=== PATIENT | female | born 1990 | race Caucasian/White ===

== ENCOUNTER → 2016-10-12 | Outpatient (CLI) | payer OTHER | LOC: MOB LAB 10:31 | PROVIDERS: ATTEND Obstetrics & Gynecology | DX: Z20.2 Contact with and (suspected) exposure to infections with a predominantly sexual mode of transmission (principal) | CPT/HCPCS: 87491; 87591 ==

== ENCOUNTER 2016-11-28 12:40 | Emergency (ER) | payer OTHER ==
[2016-11-28] MEDS ORDERED: ONDANSETRON 4 MG/2 ML VIAL IVP ONE (13:26)
[2016-11-28] MEDS ORDERED: NORMAL SALINE 10 ML SYRINGE FLUSH IVP PRN (13:26)
[2016-11-28] MEDS ORDERED: Sodium Chloride 0.9% 1,000 ML PRIMARY IV ONE (13:26)
[2016-11-28] MEDS ORDERED: Famotidine Inj 20 MG in Normal Saline Flush 10 ML IVP ONE (13:26)
[2016-11-28] MEDS ORDERED: HYDROmorphone 2 MG/1 ML IVP ONE (13:29)
[2016-11-28 13:51] LABS: BASOPHILS # (AUTO) 0.01 10*3/UL; BASOPHILS % (AUTO) 0.2 % (0-1); EOSINOPHILS % (AUTO) 1.6 % (0-8); HEMATOCRIT 38.7 % (37.0-47.0); HEMOGLOBIN 13.1 g/dL (12.0-16.0); IMM GRAN % (AUTO) 0.2 % (0-5); IMM GRAN# (AUTO) 0.01 10*3/UL; LYMPHOCYTES # (AUTO) 2.59 10*3/uL; MEAN CORPUSCULAR HEMOGLOBIN 29.6 PG (27-31); MEAN CORPUSCULAR HGB CONC 33.9 g/dL (33-37); MEAN PLATELET VOLUME 10.4 FL (7.4-12.2); MONOCYTES # (AUTO) 0.49 10*3/UL (0.3-0.8); MONOCYTES % (AUTO) 7.8 % (5-15); NEUTROPHILS # (AUTO) 3.11 10*3/UL; NEUTROPHILS % (AUTO) 49.2 % (50-80); RDW COEFFICIENT OF VARIATION 12.8 % (11.5-14.5); RED BLOOD COUNT 4.43 10^6/uL (4.20-5.40); WHITE BLOOD COUNT 6.31 10^3/uL (4.8-10.8)
[2016-11-28 13:58] LABS: PLATELET MORPHOLOGY COMMENT NORMAL MORPHOLOGY (NORM)
[2016-11-28 14:02] LABS: AMYLASE 80 U/L (30-110); ASPARTATE AMINO TRANSFERASE 26 IU/L (8-39); BILIRUBIN,TOTAL 0.4 mg/dL (0.3-1.2); BLOOD UREA NITROGEN 12 mg/dL (7-22); BUN/CREATININE RATIO 17.14 (6-20); CALCIUM 9.5 mg/dL (8.7-10.7); CHLORIDE 104 meq/L (98-112); CREATININE 0.7 mg/dL (0.50-1.20); EST GLOMERULAR FILTRATION > 60 (>60 ml/min/1.73m(2)); GLUCOSE 78 mg/dL (78-110); SODIUM 138 meq/L (135-145); TOTAL PROTEIN 7.7 g/dL (6.1-8.0)
[2016-11-28 14:08] LABS: BILIRUBIN,URINE NEGATIVE (NEG); CLARITY,URINE CLEAR (CLEAR); GLUCOSE, URINE (UA) NEGATIVE (NEG); LEUKOCYTE ESTERASE ,URINE SMALL (NEG); NITRATE,URINE NEGATIVE (NEG); OCCULT BLOOD,URINE NEGATIVE (NEG); PH,URINE 6.5 (5.0-8.5); PROTEIN,URINE NEGATIVE (NEG); UROBILINOGEN,URINE 0.2 EU/dL (0.2)
[2016-11-28 14:23] LABS: URINE SAMPLE TYPE CLEAN CATCH URINE
[2016-11-28 14:27] LABS: BACTERIA,URINE MODERATE; SQUAMOUS EPITHELIAL CELL,UR RARE
--- NOTE | 2016-11-28 15:31 | DI ---
HISTORY: Abdominal pain. COMPARISON: None available. TECHNIQUE: Grayscale evaluation of the liver, spleen, gallbladder, kidneys, and pancreas. 111 image s. FINDINGS: The liver demonstrates normal echogenicity, and appears mildly enlarged measuring 18 cm in greatest dimension. No focal solid or cystic mass seen. There is no apparent intra- or extrahepati c biliary duct dilation. The common duct measures at the upper limits of normal at 5 mm in maximal d imension at the level of the elizabeth hepatis. The interrogated aorta, hepatic and portal venous structures are unremarkable. The gallbladder is normal in size and shape. Multiple mobile echogenic gallstones are present in the gallbladder lumen. No pericholecystic fluid or gallbladder wall thickening present. The gallbladde r wall measures 2.0 mm in greatest dimension. Negative sonographic Wiggins's sign. The pancreas is partially obscured by overlying bowel gas and stomach. Pancreas is otherwise unremar kable. The right kidney is normal in size, shape, and echogenicity. It measures 10.6 cm in greatest long ax is dimension. The left kidney is normal in size, shape, and echogenicity. It measures 10.6 cm in gr eatest long axis dimension. No hydronephrosis or nephrolithiasis is identified. IMPRESSION: 1. No evidence of acute abnormality. 2. Cholelithiasis without acute inflammatory changes or evidence of obstruction. 3. Mildly enlarged liver, without discrete mass lesion; a nonspecific finding. NOTE: The interpreting Radiologist was not present at the time of ultrasound interrogation.
[2016-11-28 15:45] VITALS: RESP 16; TEMP 97.6
--- NOTE | 2016-11-29 02:02 | PDOC ---
Abdomen/Flank HPI - General Chief Complaint: Abdomen Pain Stated Complaint: epigastric abdominal pain Date Seen by Provider: 11/28/16 Time Seen by Provider: 13:15 Source: POSITIVE: Patient Exam Limitations: POSITIVE: No limitations Nurse's Notes Reviewed & Considered: Yes - History of Present Illness Initial Comments: The patient is a 26-year-old female. She states that for the past week, approximately, she has been having intermittent pain in the epigastrium and right upper quadrant. Around 5:30 AM this morning she developed an episode of pain which has been more severe and persistent than her previous episodes. She' s had some nausea without vomiting. Her bowel movements have been loose. No melena, hematochezia, hematemesis, dysuria, hematuria, or fevers. Patient has had no abdominal surgery but she states she has had a left ovarian cyst drained. She started control pills approximately one week ago. She is 3 para 3 abortus 1. Body Location Affected: REPORTS: Abdomen Timing: REPORTS: Abrupt Duration: <24 hours (7-8 hours) Severity: Moderate Quality: REPORTS: "Pain" Abdominal Pain Onset Location: REPORTS: RUQ, Epigastric Abdominal Pain Radiation: REPORTS: No radiation Context: REPORTS: None Modifying Factors: improves with: Other (Episodes usually occur after eating) Associated Symptoms: REPORTS: Nausea. DENIES: Denies symptoms, Back pain, Bloody Emesis, Chest pain, Coffee Grounds Emesis, Chills, Diaphoresis, Fever, Fatigue, Headache, Heartburn, Loss of Appetite, Rash, Shortness of breath, Swelling/mass in abdomen, Syncope, Testicular Pain, Vomiting, Weakness, Grossly Bloody Diarrhea, Constipation, Diarrhea, Dysuria, Incontinent Stool, Incontinent Urine, Mucous Diarrhea, Difficulty Walking, Dizziness, Light Headedness, Numbness, Other Similar Symptoms Previously: Yes (intermittent similar episodes for the past week) Recent Care Received: REPORTS: Denies Any Prior Injuries Related to Current Complaint?: No - Patient Home Medications Home Medications: Home Medications Levonorgestrel-Ethin Estradiol [Levora-28 Tablet] 1 tab PO DAILY #28 tab Ibuprofen 800 mg PO Q8H PRN #40 tab 10/12/16 HYDROcodone/APAP 10/325 Tab [Shannon 10/325 Tab] 1 tab PO Q6H PRN #20 tab Sulfameth/Trimeth 800/160 Tab [Bactrim DS 800/160 Tab] 1 tab PO Q12H #20 tablet 11/28/16 - Patient Allergies Allergies/Adverse Reactions: Allergies Allergy/AdvReac Type Severity Reaction Status Date / Time bisacodyl Allergy HIVES Unverified 10/12/16 10:19 [From Dulcolax (bisacodyl)] docusate sodium [From Colace] Allergy HIVES Unverified 10/12/16 10:19 Past Medical History - heen HEENT History: Denies History Cardiovascular History: Denies History Respiratory History: Denies History Gastrointestinal History: GERD Genitourinary History: Recurrent UTI Endocrine History: Denies History Musculoskeletal History: Denies History Prosthesis or Implant: No Neurological History: Denies History Blood Disorders: Denies History Psychiatric History: Substance Abuse 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 History of Sexually Transmitted Diseases: No Female Reproductive History: Ovarian Cyst LMP: 11/20/16 : 3 Para: 2 Cancer History: Denies History In Past Year Been Physically Harmed or Verbally Threatened: No History of MDRO: No History of Other Communicable Diseases: No Tobacco Use: Current Every Day Smoker Alcohol Use: Rarely Substance Use Type: None Previous Surgical History: No Significant Family History: Asthma, Heart disease, Cancer, Diabetes, Hypertension, Seizures Past Medical History Reviewed: Reviewed - No Changes ROS - Limitations ROS Limitations: No Limitations Constitution: REPORTS: Denies Symptoms Cardiovascular: REPORTS: Denies Cardiac Symptoms Respiratory: REPORTS: Denies Resp Symptoms Neurological: REPORTS: Denies Neuro Symptoms Gastrointestinal: REPORTS: Abdominal Pain, Nausea Endocrine: REPORTS: Denies Symptoms Musculoskeletal: REPORTS: Denies MS Symptoms Genitourinary: REPORTS: Denies Symptoms Eyes: REPORTS: Denies Symptoms ENT: REPORTS: Denies Symptoms Skin: REPORTS: Denies Skin Symptoms Lympathic: REPORTS: Denies Lympathic Symptoms Immunologic: POSITIVE: Denies Symptoms Psychiatric: POSITIVE: Denies Psych Symptoms Abdominal/Flank Pain PE - General Appearance General Appearance: POSITIVE: Alert, Cooperative, No Acute Distress, No Evidence of Trauma - HEENT HEENT: POSITIVE: Head Inspection Nml, Eyes Inspection Nml, Ears Inspection Nml, Nose Inspection Nml, Oral/Dental Inspect. Nml, Pharynx Inspect. Nml, PERRL, EOMI - Neck Neck: POSITIVE: Normal Inspection, No Apparent Injury - Respiratory Respiratory: POSITIVE: No Respiratory Distress, Breath Sounds Normal, Chest Non- Tender - Cardiovascular Cardiovascular: POSITIVE: Regular Rate and Rhythm, Heart Sounds Normal, Equal Pulses, Strong Pulses Peripheral Pulses: Radial (R): 2+, Radial (L): 2+ - Chest Chest: POSITIVE: Non Tender - Abdomen Abdomen: Soft: (All Quadrants), Normal Bowel Sounds: (All Quadrants), Denies Tenderness: (LLQ), (LUQ), (RLQ), No Splenomegaly: (All Quadrants), No Hepatomegaly: (All Quadrants), No Guarding: (All Quadrants), No Rebound: (All Quadrants), No Palpable Pulse: (All Quadrants), No Palpabale Mass: (All Quadrants), No Distention: (All Quadrants), No Rigidity: (All Quadrants), Tenderness Noted: (RUQ) Additional Abdominal Details: Abdominal examination shows bowel sounds to be active. She does have tenderness on palpation over the epigastrium and right upper quadrant. No masses or organomegaly or rebound. - Back Back: POSITIVE: Normal Inspection. 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 As Tested, Motor Normal, Sensation Normal, 5, 6 - Psychological Psychiatric: POSITIVE: Affect Appropriate, Mood Appropriate Images - Complete Complete: 1 - Area of pain on palpation Abdomen Progress - Results Reviewed by me Xrays/CTs/US Reviewed by me: Yes Discussed with Radiologist: Yes Radiology Findings: Abdominal ultrasound shows cholelithiasis with no evidence of cholecystitis Lab Results Reviewed: Yes (8-10 white blood cells in urine; culture pending) Lab Results:: Laboratory Results 11/28/16 11/28/16 Range/Units 13:43 14:00 WBC 6.31 (4.8-10.8) 10^3/uL RBC 4.43 (4.20-5.40) 10^6/uL Hgb 13.1 (12.0-16.0) g/dL Hct 38.7 (37.0-47.0) % MCV 87.4 (81-99) FL MCH 29.6 (27-31) PG MCHC 33.9 (33-37) g/dL RDW Std Deviation 39.9 (39-50) fL RDW Coeff of Aquiles 12.8 (11.5-14.5) % Plt Count 267 (140-350) 10*3/uL MPV 10.4 (7.4-12.2) FL Immature Gran % (Auto) 0.2 (0-5) % Neut % (Auto) 49.2 L (50-80) % Lymph % (Auto) 41.0 (10-50) % [place] % (Auto) 7.8 (5-15) % Eos % (Auto) 1.6 (0-8) % Baso % (Auto) 0.2 (0-1) % Immature Gran # (Auto) 0.01 10*3/UL Neut # (Auto) 3.11 10*3/UL Lymph # (Auto) 2.59 10*3/uL [place] # (Auto) 0.49 (0.3-0.8) 10*3/UL Eos # (Auto) 0.10 10*3/UL Baso # (Auto) 0.01 10*3/UL WBC Morphology Comment Normal morphology (NORM) Plt Morphology Comment Normal morphology (NORM) RBC Morph Comment Normal morphology (NORM) Sodium 138 (135-145) meq/L Potassium 4.0 (3.8-5.2) meq/L Chloride 104 (98-112) meq/L Carbon Dioxide 23 (23-33) meq/L Anion Gap 11 (5-20) BUN 12 (7-22) mg/dL Creatinine 0.7 (0.50-1.20) mg/dL Estimated GFR > 60 (>60 ml/min/1.73m(2)) BUN/Creatinine Ratio 17.14 (6-20) Glucose 78 (78-110) mg/dL Calculated Osmolality 284.0 (267-292) mOsm/kg Calcium 9.5 (8.7-10.7) mg/dL Total Bilirubin 0.4 (0.3-1.2) mg/dL AST 26 (8-39) IU/L ALT 35 (9-52) IU/L Alkaline Phosphatase 46 (38-126) IU/L Total Protein 7.7 (6.1-8.0) g/dL Albumin 4.4 (3.5-4.8) g/dL Globulin 3.3 (2.50-4.10) g/dL Albumin/Globulin Ratio 1.30 (1.3-2.0) mg/g Amylase 80 (30-110) U/L Lipase 64 (23-300) IU/L Serum HCG, Qual Negative Ur Collection Type Clean catch urine Urine Color Yellow Urine Clarity Clear (CLEAR) Urine pH 6.5 (5.0-8.5) Ur Specific [place] 1.020 (1.005-1.030) Urine Protein Negative (NEG) mg/dl Urine Glucose (UA) Negative (NEG) mg/dL Urine Ketones Negative (NEG) Urine Occult Blood Negative (NEG) Urine Nitrate Negative (NEG) Urine Bilirubin Negative (NEG) Urine Urobilinogen 0.2 (0.2) EU/dL Ur Leukocyte Esterase Small (NEG) Urine RBC 1-3 (NONE) /hpf Urine WBC 8-10 (NONE) Ur Squamous Epith Cells Rare (NONE) Ur Renal Epithelial Cell None (NONE) Urine Crystals None Urine Bacteria Moderate (NONE) Urine Casts None (NONE) Urine Mucus None (NONE) Urine Trichomonas None (NONE) Urine Yeast None (NONE) Ur Culture Indicated? Culture set - Patient's Progress Pain Medication Addressed: POSITIVE: Yes (Dilaudid, 2 mg IV) School/Work Release Addressed: POSITIVE: Yes Re-examine Time: 15:25 Re-Examine Comment: Pain resolved; patient asymptomatic on discharge Status: POSITIVE: Improved, Re-Examined - Consult Counseled: POSITIVE: Patient, RE: Lab Results, RE: Radiology Results, RE: DX, RE : Need for F/U Patient Care Time - Estimated PCT Patient Care Time (In Minutes): 40 Vital Signs - VS Reviewed Vital Signs Reviewed: Yes Discharge Clinical Impression: Biliary colic, Gall stones, Urinary tract bacterial infections Discharge Disposition: Discharged to Home Condition: Stable Prescriptions / Orders: Sulfameth/Trimeth 800/160 Tab [Bactrim DS 800/160 Tab] 1 tab PO Q12H #20 tablet HYDROcodone/APAP 10/325 Tab [Shannon 10/325 Tab] 1 tab PO Q6H PRN #20 tab PRN Reason: Pain Patient Instructions Given at Discharge: Biliary Colic (ED), Gallstones (ED), Urinary Tract Infection in Women (ED) Additional Instructions: I'm glad you are feeling better. The upper abdominal pain that you experienced earlier today was due to gallstones, and is called biliary colic. Please observe a low-fat diet. Clear liquids for 24 hours. Please make an appointment with one of the surgeons for further evaluation and treatment. Return here anytime if you develop high fever or severe pain or persistent vomiting, or if condition worsens in any way. Your urine test also showed that you probably have a urinary tract infection; we will treat this with Bactrim DS , one every 12 hours for 10 days. Follow Up With: JUANJO DAVALOS [Primary Care Provider] - (Follow-up with surgeon. Instructions as above. Return here anytime as necessary.)
== END 2016-11-28 15:49 | disposition home or self-care (01) ==
LOC: ER 12:40
DX: K80.50 Calculus of bile duct without cholangitis or cholecystitis without obstruction (principal); K80.20 Calculus of gallbladder without cholecystitis without obstruction; N39.0 Urinary tract infection, site not specified; R10.11 Right upper quadrant pain; R11.0 Nausea
CPT/HCPCS: 76700; 80053; 81001; 81003; 82150; 83690; 84703; 85025; 87088; 87185; 87205; 96361; 96374; 96375; 99283; J1170; J2405; J7030

== ENCOUNTER 2016-12-08 09:52 | Day surgery (SDC) | payer OTHER ==
[~2016-12-08 09:52] MED LIST: ATROPINE SULFATE 0.4 MG/1 ML VIAL IVP PRN; LIDOCAINE W/ SODIUM BICARB 0.5 ML SYR ONE; Lactated Ringers 1,000 ML PRIMARY IV ONE; Lactated Ringers 1,000 ML PRIMARY IV SCH; NORMAL SALINE 10 ML SYRINGE FLUSH IVP PRN; ONDANSETRON 4 MG/2 ML VIAL IVP PRN; Ondansetron ODT Tab 8 MG TAB PO PRN; ceFAZolin Inj 2gm (Premix) 50 ML IV ONE; fentaNYL Inj 100 MCG/2 ML VIAL IVP PRN
[2016-12-08 10:16] LABS: URINE SPECIFIC GRAVITY - MAN 1.015
[2016-12-08] MEDS ORDERED: MIDAZOLAM 5 MG/1 ML ONE (10:17)
[2016-12-08] MEDS ORDERED: fentaNYL Inj 250 MCG/5 ML VIAL ONE ×2 (10:17→13:32)
[2016-12-08] MEDS ORDERED: ROCURONIUM 10 MG/1 ML - 5 ML VIAL IVP ONE (11:27)
[2016-12-08] MEDS ORDERED: BUPIVACAINE 0.25% W/ EPI - 10 ML VIAL ONE (12:18)
[2016-12-08] MEDS ORDERED: Sodium Chloride 0.9% vial 50 ML ONE (12:18)
[2016-12-08] MEDS ORDERED: Iothalamate Meglumine 30 ML VIAL IV ONE (12:19)
[2016-12-08] MEDS ORDERED: LIDOCAINE MPF 2% - 5 ML (20 MG/1 ML) ONE (12:28)
[2016-12-08] MEDS ORDERED: KETAMINE 100 MG/1 ML - 5 ML ONE (12:29)
[2016-12-08] MEDS ORDERED: Lactated Ringers 1,000 ML PRIMARY IV ONE ×2 (13:31→13:47)
[2016-12-08] MEDS ORDERED: DEXAMETHASONE PF 10 MG/1 ML VIAL ONE (13:36)
[2016-12-08] MEDS ORDERED: GLYCOPYRROLATE 0.2 MG/1 ML VIAL ONE (13:47)
[2016-12-08] MEDS ORDERED: NEOSTIGMINE 1 MG/1 ML - 10 ML ONE (13:47)
[2016-12-08] MEDS ORDERED: ONDANSETRON 4 MG/2 ML VIAL ONE (13:48)
[2016-12-08] MEDS ORDERED: KETOROLAC 30 MG/1 ML VIAL ONE (14:10)
[2016-12-08] MEDS ORDERED: HYDROmorphone 2 MG/1 ML ONE (14:38)
[2016-12-08] MEDS: HYDROmorphone 2 MG/1 ML IVP PRN ×4 (14:40→15:11)
--- NOTE | 2016-12-08 15:03 | GEN.OPNOTE ---
Operative Note Surgery Date: 12/08/16 Preoperative Diagnosis: Chronic cholecystitis with cholelithiasis. Postoperative Diagnosis: Chronic cholecystitis with cholelithiasis and choledocholithiasis. Procedure: Laparoscopic cholecystectomy with intraoperative cholangiogram. Surgeon: Ubaldo Perez MD Steam Box Operator: Elías Rodgers MD Anesthesia Provider: Miladis Little CRNA Anesthesia Type: General Estimated Blood Loss (mL): 25 Fluids: 2200 mL of crystalloid. 2 g of IV Ancef at the start of the procedure. 15 mg of IV Toradol at the end of the procedure. Pathology: Specimen to pathology. Indications: Patient was seen in the ER with epigastric and right upper quadrant abdominal pain. This has been going on for years but it got worse lately. Ultrasound showed multiple small stones in her gallbladder. Her common bile duct was 5 mm. Her liver function tests, amylase, and lipase were all normal. She was scheduled for an elective laparoscopic cholecystectomy with intraoperative cholangiogram. Findings: Thick-walled gallbladder with multiple stones. Intraoperative cholangiogram shows a generous duct with 5 or 6 filling defects in the common bile duct. There is some flow into the duodenum. There is a normal branching pattern. No other intra-abdominal pathology identified. Complications: None. Operative Summary: The patient was taken to the operating room and placed on the operating table in the supine position. Following induction of general anesthetic the abdomen was prepped and draped in a sterile fashion. A surgical timeout was done. The infraumbilical region was infiltrated with 1/4% Marcaine with epinephrine. An incision was made. The abdominal wall was elevated. I attempted to place a veres needle but could not get flow of saline through the needle. A 10 mm visaport trocar was placed into the peritoneal cavity over the laparoscope without apparent injury and a laparoscope was inserted. Under direct visualization and following Marcaine injection a 10 mm trocar was placed in the epigastrium and 2x5 mm trochars were placed along the costal margin. The gallbladder was grasped and elevated. Blunt dissection was used to free the cystic duct. A hole was made in the side wall of the cystic duct. There was a stone in the proximal cystic duct. The cystic duct was dilated. A Jonathan cholangiocatheter was inserted. Intraoperative cholangiogram showed multiple filling defects in the common bile duct. There was some flow into the duodenum. The Jonathan catheter was withdrawn. A clip was placed on the proximal cystic duct and 3 clips were placed on the distal cystic duct and the duct was divided. The cystic artery was isolated. 2 clips were placed proximally and one distally and the artery was divided. The gallbladder was taken from the hepatic bed using electrocautery. Hemostasis was assured. Appropriate irrigation and suctioning were performed. Final check for hemostasis was made. With the laparoscope in the umbilical port the gallbladder was placed in an Endopouch. The gallbladder was grasped with a large grasper and brought up to the epigastric trocar site. The fascial defect at the epigastric trocar site was slightly increased in size. The gallbladder was brought out through the trocar site without difficulty. The surgical defect was closed with a posterior layer of 0 Vicryl and an anterior sheath layer of 0 Vicryl. A final check for hemostasis was made. The CO2 was burped from the abdominal cavity. The trochars were removed under direct visualization. No other trocar sites required fascial closure. The skin wounds were closed with surgical isabella followed by an appropriate dressing. Patient tolerated the procedure well without complication. Patient was taken to the recovery room in stable condition. All counts were correct. Because of her common bile duct stones arrangements are being made to transfer her to [facility] for an ERCP. The ERCP will likely be in the a.m.
[2016-12-08 15:19] VITALS: TEMP 98.2
[2016-12-08 15:21] VITALS: RESP 15
[2016-12-08] MEDS ORDERED: HYDROcodone-APAP 5 MG -325 MG TABLET PO PRN (15:22)
[2016-12-08] MEDS ORDERED: ONDANSETRON 4 MG/2 ML VIAL IVP PRN (15:22)
[2016-12-08] MEDS ORDERED: NORMAL SALINE 10 ML SYRINGE FLUSH IVP PRN (15:22)
[2016-12-08] MEDS ORDERED: MORPHINE SULFATE 2 MG/1 ML IVP PRN (15:22)
[2016-12-08] MEDS ORDERED: Lactated Ringers 1,000 ML PRIMARY IV SCH (15:30)
== END 2016-12-08 15:45 | disposition short-term general hospital (02) ==
LOC: SDSC 09:52
PROVIDERS: ATTEND Surgery
DX: K80.44 Calculus of bile duct with chronic cholecystitis without obstruction (principal); K80.10 Calculus of gallbladder with chronic cholecystitis without obstruction
CPT/HCPCS: 47563; 74300; 84703; A4216; J0690; J1885; J2704; J3010; Q9961; J1100; J1170; J2001; J2250; J2405; J2710; J7120

== ENCOUNTER 2017-02-26 12:20 | Emergency (ER) | payer OTHER ==
[2017-02-26] MEDS ORDERED: NORMAL SALINE 10 ML SYRINGE FLUSH IVP PRN (12:31)
[2017-02-26] MEDS ORDERED: MORPHINE SULFATE 2 MG/1 ML IVP ONE (12:31)
[2017-02-26] MEDS ORDERED: Sodium Chloride 0.9% 1,000 ML PRIMARY IV ONE (12:31)
--- NOTE | 2017-02-26 12:31 | PDOC ---
Chest Pain HPI - General Chief Complaint: Chest Pain Stated Complaint: chest pain Date Seen by Provider: 02/26/17 Time Seen by Provider: 12:31 Source: Patient Exam Limitations: POSITIVE: No limitations - History of Present Illness Initial Comments: Ms. reis is a 26-year-old woman coming today with chest pain and shortness of breath. These started this morning. Yesterday she underwent ERCP and a biliary stent removal. The patient and her chest is located diffusely across the entire anterior portion of her chest, it is worse when she takes deep breaths. The pain makes so that she does not want to take deep breaths and she feels like she is not able blockage and deep into her lungs. She has no cough she has no fever. She is no nausea or vomiting. She has no calf swelling. She has no fevers or sore she knows. She describes the pain as a tightness. It is not exertional or positional. - Patient Home Medications Home Medications: Home Medications Levonorgestrel-Ethin Estradiol [Levora-28 Tablet] 1 tab PO DAILY #28 tab Magnesium 1 tab PO DAILY tab 12/16/16 Hydrocodone/Acetaminophen [[place] 5-325 Tablet] 1 tab PO Q4H PRN #16 tab Omeprazole 40 mg PO DAILY 02/26/17 - Patient Allergies Allergies/Adverse Reactions: Allergies Allergy/AdvReac Type Severity Reaction Status Date / Time bisacodyl Allergy HIVES Verified 02/26/17 12:28 [From Dulcolax (bisacodyl)] docusate sodium [From Colace] Allergy HIVES Verified 02/26/17 12:28 Past Medical History - heen HEENT History: Denies History Cardiovascular History: Denies History Respiratory History: Denies History Gastrointestinal History: GERD, Gallbladder Disease Genitourinary History: Recurrent UTI Endocrine History: Denies History Musculoskeletal History: Denies History Prosthesis or Implant: No Neurological History: Denies History Blood Disorders: Denies History Psychiatric History: Substance Abuse Additional Psychiatric History: Meth use from 3094-5931...last use in 2013. History of Sexually Transmitted Diseases: No Cancer History: Denies History History of MDRO: No History of Other Communicable Diseases: No Alcohol Use: Rarely Substance Use Type: None Previous Surgical History: Yes Type / Date of Surgery: LAPAROSCOPIC DRAINAGE OF LEFT OVARIAN CYST Anesthesia Reactions: No Malignant Hyperthermia: No Significant Family History: Asthma, Heart disease, Cancer, Diabetes, Hypertension, Seizures Past Medical History Reviewed: Reviewed - No Changes ROS - Limitations ROS Limitations: No Limitations Constitution: REPORTS: Denies Symptoms Cardiovascular: REPORTS: Chest Pain Respiratory: REPORTS: Hurts To Breathe, Shortness Of Breath Neurological: REPORTS: Denies Neuro Symptoms Gastrointestinal: REPORTS: Denies GI Symptoms Endocrine: REPORTS: Denies Symptoms Musculoskeletal: REPORTS: Denies MS Symptoms Genitourinary: REPORTS: Denies Symptoms Eyes: REPORTS: Denies Symptoms ENT: REPORTS: Denies Symptoms Skin: REPORTS: Denies Skin Symptoms Lympathic: REPORTS: Denies Lympathic Symptoms Immunologic: POSITIVE: Denies Symptoms Psychiatric: POSITIVE: Denies Psych Symptoms Chest Pain PE - General Appearance General Appearance: REPORTS: Alert, Cooperative, No Acute Distress, No Evidence of Trauma - HEENT HEENT: POSITIVE: Head Inspection Nml, Eyes Inspection Nml, Ears Inspection Nml, Nose Inspection Nml, PERRL, EOMI - Neck Neck: REPORTS: Normal Inspection - Respiratory Respiratory: REPORTS: No Respiratory Distress, Breath Sounds Normal, Other (The entirety of her anterior chest is diffusely tender to light palpation with no bony abnormalities no swelling and no bruising.) - Cardiovascular Cardiovascular: REPORTS: Regular Rate and Rhythm, Heart Sounds Normal, Equal Pulses, Strong Pulses Peripheral Pulses: Radial (R): 2+, Radial (L): 2+ - Abdomen Abdomen: Soft: (All Quadrants), Normal Bowel Sounds: (All Quadrants), Denies Tenderness: (All Quadrants), No Guarding: (All Quadrants), No Rebound: (All Quadrants), No Palpabale Mass: (All Quadrants) - Skin Skin: REPORTS: Intact, Normal For Race, No Rash - Extremities Extremity: Non-Tender: (All Extremities), Normal ROM: (All Extremities), Normal Inspection: (All Extremities) - Neurological / Psychological Neurological: POSITIVE: Affect Apporpriate, Oriented X3, 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 Normal As Tested, Motor Normal, Sensation Normal Chest Pain Progress - Results Reviewed by me Xrays/CTs/US Reviewed by me: Yes Radiology Findings: No evidence of blood clots, pneumonia, or foreign body Lab Results:: Laboratory Results 02/26/17 02/26/17 Range/Units 12:24 12:46 WBC 6.20 (4.8-10.8) 10^3/uL RBC 4.83 (4.20-5.40) 10^6/uL Hgb 14.3 (12.0-16.0) g/dL Hct 41.4 (37.0-47.0) % MCV 85.7 (81-99) FL MCH 29.6 (27-31) PG MCHC 34.5 (33-37) g/dL RDW Std Deviation 40.0 (39-50) fL RDW Coeff of Aquiles 13.1 (11.5-14.5) % Plt Count 307 (140-350) 10*3/uL MPV 10.4 (7.4-12.2) FL Immature Gran % (Auto) 0 (0-5) % Neut % (Auto) 50.5 (50-80) % Lymph % (Auto) 40.3 (10-50) % [place] % (Auto) 7.1 (5-15) % Eos % (Auto) 1.5 (0-8) % Baso % (Auto) 0.6 (0-1) % Immature Gran # (Auto) 0 10*3/UL Neut # (Auto) 3.13 10*3/UL Lymph # (Auto) 2.50 10*3/uL [place] # (Auto) 0.44 (0.3-0.8) 10*3/UL Eos # (Auto) 0.09 10*3/UL Baso # (Auto) 0.04 10*3/UL WBC Morphology Comment Normal morphology (NORM) Plt Morphology Comment Normal morphology (NORM) RBC Morph Comment Normal morphology (NORM) D-Dimer 0.66 H (0.00-0.59) mg/L VBG pH 7.38 (7.32-7.42) VBG pCO2 37 L (45-55) mmHg VBG HCO3 22 (22-26) mmol/L VBG Base Excess -3 L (-2-2) MMOL/L Sodium 142 (135-145) meq/L Potassium 3.9 (3.8-5.2) meq/L Chloride 106 (98-112) meq/L Carbon Dioxide 23 (23-33) meq/L Anion Gap 13 (5-20) BUN 7 (7-22) mg/dL Creatinine 0.7 (0.50-1.20) mg/dL Estimated GFR > 60 (>60 ml/min/1.73m(2)) BUN/Creatinine Ratio 10.00 (6-20) Glucose 108 (78-110) mg/dL Calculated Osmolality 292.0 (267-292) mOsm/kg Calcium 9.8 (8.7-10.7) mg/dL Total Bilirubin 0.4 (0.3-1.2) mg/dL AST 28 (8-39) IU/L ALT 38 (9-52) IU/L Alkaline Phosphatase 46 (38-126) IU/L Troponin I < 0.012 (< 0.040) ng/mL Total Protein 7.7 (6.1-8.0) g/dL Albumin 4.5 (3.5-4.8) g/dL Globulin 3.3 (2.50-4.10) g/dL Albumin/Globulin Ratio 1.30 (1.3-2.0) mg/g EKG Interpreted/Reviewed By Me:: Yes (normal sinus rhythm, no ST segment elevations, intervals are normal) - Patient's Progress MDM / ED Course: Ms. reis is a 26-year-old woman coming in today with pleuritic chest discomfort and mild shortness of breath. Her chest x-ray looked okay. We gave her a DuoNeb but it didn't really do much. Her d-dimer was slightly elevated, she is on estrogen-containing medications, and so we obtained the CT of the chest which showed no blood clots. We gave a limited prescription of norco for pain control and recommended she follow up with her primary doctor and specialists to monitor her symptoms long-term. Patient Care Time - Estimated PCT Patient Care Time (In Minutes): 45 Vital Signs - Recent Vital Signs Vital Signs: Vital Signs (Last 8 hours) Temp Pulse Resp BP Pulse Ox 02/26/17 12:25 98.5 F 70 20 138/79 96 Discharge Clinical Impression: Chest discomfort Discharge Disposition: Discharged to Home Condition: Fair Prescriptions / Orders: Hydrocodone/Acetaminophen [[place] 5-325 Tablet] 1 tab PO Q4H PRN #16 tab PRN Reason: Pain Additional Instructions: Your scans and labs were all reassuring, no evidence of infection, blood clots, or lung problems. Take the norco for pain control, follow up with your primary doctors and specialists to monitor your symptoms [facility]. Follow Up With: NONE,NONE [Primary Care Provider] -
[2017-02-26] MEDS ORDERED: IPRATROPIUM/ALBUTEROL SULFATE 3 ML NEB NEB ONE (12:32)
--- NOTE | 2017-02-26 12:34 | EKG ---
[address] [address] Measurements Intervals [place] Rate: 76 P: 2 DE: 127 QRS: 0 QRSD: 92 T: 20 QT: 372 QTc: 403 Interpretive Statements SINUS RHYTHM WITH SINUS ARRHYTHMIA Compared to ECG 06/07/2016 11:02:02 No significant changes Electronically Signed On 02-28-17 08:06:29 MDT by Bimal Pulliam MD [email or web address]
[2017-02-26 12:45] LABS: BASOPHILS # (AUTO) 0.04 10*3/UL; BASOPHILS % (AUTO) 0.6 % (0-1); EOSINOPHILS # (AUTO) 0.09 10*3/UL; EOSINOPHILS % (AUTO) 1.5 % (0-8); HEMATOCRIT 41.4 % (37.0-47.0); HEMOGLOBIN 14.3 g/dL (12.0-16.0); MEAN CORPUSCULAR HEMOGLOBIN 29.6 PG (27-31); MEAN CORPUSCULAR HGB CONC 34.5 g/dL (33-37); MEAN CORPUSCULAR VOLUME 85.7 FL (81-99); MEAN PLATELET VOLUME 10.4 FL (7.4-12.2); MONOCYTES # (AUTO) 0.44 10*3/UL (0.3-0.8); MONOCYTES % (AUTO) 7.1 % (5-15); NEUTROPHILS # (AUTO) 3.13 10*3/UL; NEUTROPHILS % (AUTO) 50.5 % (50-80); PLATELET MORPHOLOGY COMMENT NORMAL MORPHOLOGY (NORM); RBC MORPHOLOGY COMMENT NORMAL MORPHOLOGY (NORM); RED BLOOD COUNT 4.83 10^6/uL (4.20-5.40); WBC MORPHOLOGY COMMENT NORMAL MORPHOLOGY (NORM)
[2017-02-26 12:53] LABS: VENOUS PH 7.38 (7.32-7.42)
[2017-02-26 13:02] LABS: BLOOD UREA NITROGEN 7 mg/dL (7-22); CALCIUM 9.8 mg/dL (8.7-10.7); EST GLOMERULAR FILTRATION > 60 (>60 ml/min/1.73m(2)); SERUM ALBUMIN 4.5 g/dL (3.5-4.8)
[2017-02-26 13:04] VITALS: TEMP 98.5
--- NOTE | 2017-02-26 14:39 | DI ---
HISTORY: Chest pain. FINDINGS: The heart is within normal limits. The lung segura are essentially clear. IMPRESSION: 1. No acute cardiopulmonary pathology identified.
--- NOTE | 2017-02-26 15:02 | DI ---
HISTORY: Chest pain and elevated d-dimer. PREVIOUS EXAM: None available. TECHNIQUE: Multiple helically acquired CT images are obtained through the chest following a CT angio gram protocol. FINDINGS: CT images demonstrate mild subsegmental atelectasis in the lung bases. Pulmonary arteries are normal without filling defect or truncation to suggest pulmonary embolism. The upper abdomen is unremarkable. Skeletal structures and airways are unremarkable. IMPRESSION: 1. No evidence of pulmonary embolism. NOTIFICATION: The above findings were phoned to Torie Francois in the ER Department on 02/26/2017 a t 5:49pm EST.
[2017-02-26 15:24] VITALS: RESP 16
== END 2017-02-26 15:22 | disposition home or self-care (01) ==
LOC: ER 12:20
DX: R07.89 Other chest pain (principal); R06.02 Shortness of breath; R79.1 Abnormal coagulation profile; K21.9 Gastro-esophageal reflux disease without esophagitis
CPT/HCPCS: 36415; 71010; 71275; 80053; 82803; 84484; 85025; 85379; 93005; 93010; 94640; 96361; 96374; 99284; J2270; J7030; J7620

== ENCOUNTER → 2017-04-29 | Outpatient (CLI) | payer OTHER ==
[2017-04-29 12:41] LABS: HEMATOCRIT 40.2 % (37.0-47.0); HEMOGLOBIN 13.8 g/dL (12.0-16.0); MEAN CORPUSCULAR HEMOGLOBIN 29.6 PG (27-31); MEAN CORPUSCULAR HGB CONC 34.3 g/dL (33-37); MEAN CORPUSCULAR VOLUME 86.3 FL (81-99); MEAN PLATELET VOLUME 10.2 FL (7.4-12.2); RED BLOOD COUNT 4.66 10^6/uL (4.20-5.40)
[2017-04-29 12:50] LABS: BLOOD UREA NITROGEN 12 mg/dL (7-22); BUN/CREATININE RATIO 17.14 (6-20); CALCIUM 9.8 mg/dL (8.7-10.7); EST GLOMERULAR FILTRATION > 60 (>60 ml/min/1.73m(2)); SERUM ALBUMIN 4.3 g/dL (3.5-4.8)
== END ==
LOC: MOB LAB 12:08
PROVIDERS: ATTEND Internal Medicine Gastroenterology
DX: R10.9 Unspecified abdominal pain (principal); R11.0 Nausea; K21.9 Gastro-esophageal reflux disease without esophagitis; R53.83 Other fatigue; R42 Dizziness and giddiness
CPT/HCPCS: 36415; 80053; 85027